=== PATIENT | male | born 1950 ===

== ENCOUNTER → 2017-12-14 | Outpatient (CLI) | payer OTHER | END | disposition home or self-care (01) | LOC: NUCLEAR 10:00 | DX: R94.31 Abnormal electrocardiogram [ECG] [EKG] (principal); I80.3 Phlebitis and thrombophlebitis of lower extremities, unspecified; I73.9 Peripheral vascular disease, unspecified; M27.2 Inflammatory conditions of jaws; T66.XXXD Radiation sickness, unspecified, subsequent encounter ==

== ENCOUNTER → 2018-07-03 | Outpatient (CLI) | payer OTHER | END | disposition home or self-care (01) | LOC: NUCLEAR 11:00 | DX: I10 Essential (primary) hypertension (principal) ==